=== PATIENT | male | born 1960 | race Caucasian/White ===

== ENCOUNTER 2022-06-22 11:47 | Observation (INO) | payer BC ==
[~2022-06-22] VITALS: Ht 165.1 cm; Wt 105.4 kg
[2022-06-22 11:52] VITALS: BP 146/96
[2022-06-22] MEDS ORDERED: TORADOL IV STA (12:14)
--- NOTE | 2022-06-22 12:24 | ER.PDOC ---
General Chief Complaint: Flank Pain Stated Complaint: POSSIBLE KIDNEY STONE Time seen by MD: 12:20 Source: patient Exam Limitations: no limitations History of Present Illness Initial Comments Patient was seen in the emergency room in [place] last week and diagnosed with right ureteral calculus. Patient was referred to Dr. Adam. He came to the hospital and had pre-op labs today for stent placement tomorrow. He started experiencing so much pain and was told to come to the emergency room. No fever or chills. Timing/Duration: 1 week Severity/Quality: severe, sharpness Radiation: RLQ Associated Symptoms: denies symptoms Exacerbated by: nothing Relieved By: nothing Allergies: Coded Allergies: No Known Allergies (Unverified , 06/22/22) Vital Signs First Vital Signs Date Time Temp Pulse Resp B/P (MAP) Pulse Ox O2 Delivery O2 Flow Rate FiO2 06/22/22 11:52 97.9 50 18 97 06/22/22 11:52 146/96 (113) Room Air* 0 21 Last Vital Signs Date Time Temp Pulse Resp B/P (MAP) Pulse Ox O2 Delivery O2 Flow Rate FiO2 06/22/22 11:52 97.9 50 18 146/96 (113) 97 Room Air* 0 21 Past Medical History Medical History: hypertension Surgical History: no surgical history Family History Significant Family History: no pertinent family hx Social History Smoking: non-smoker Alcohol Use: occassionally Drug Use: none Constitutional: no symptoms reported Respiratory: no symptoms reported Cardiovascular: no symptoms reported Gastrointestinal: see HPI Genitourinary: see HPI All Other Systems: Reviewed and Negative Physical Exam General Appearance: No Apparent Distress, WD/WN Neck: Non-Tender, Full Range of Motion, Supple, Normal Inspection Respiratory: chest non-tender, lungs clear, normal breath sounds, no respiratory distress, no accessory muscle use Cardiovascular: Normal Peripheral Pulses, Regular Rate, Rhythm, No Edema, No Gallop, No JVD, No Murmur Gastrointestinal: Normal Bowel Sounds, No Organomegaly, No Pulsatile Mass, Guarding, Tenderness (RLQ) Back: Normal Inspection, No CVA Tenderness, No Vertebral Tenderness Extremities: Normal Range of Motion, Non-Tender, Normal Inspection, No Pedal Edema, No Calf Tenderness, Normal Capillary Refill, Pelvis Stable 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, No Motor/Sensory Deficits, Alert, Normal Mood/Affect, Oriented x 3 Skin: Normal Color, Warm/Dry Lymphatic: No Adenopathy Results/Orders Results/Orders Orders - SELINA GONZALEZ MD Urinalysis (06/22/22 12:14) Ct Abd/Pelvis Wo Iv Contrast (06/22/22 12:14) Ketorolac Tromethamine (Toradol) (06/22/22 12:14) Ketorolac Tromethamine (Toradol) (06/22/22 12:31) Vital Signs Date Time Temp Pulse Resp B/P (MAP) Pulse Ox O2 Delivery O2 Flow Rate FiO2 06/22/22 11:52 97.9 50 18 146/96 (113) 97 Room Air* 0 21 06/22/22 11:52 97.9 50 18 06/22/22 11:52 97.9 50 18 97 Administered Medications Medications (Trade) Dose Ordered Sig/Melissa Route PRN Reason Start Time Stop Time Status Last Admin Dose Admin Ketorolac Tromethamine (Toradol) 30 mg STAT STAT IV 06/22/22 12:14 06/22/22 12:17 DC 06/22/22 12:46 30 MG Laboratory Tests Test 06/22/22 12:26 Urine Collection Type RANDOM Urine Color YELLOW Urine Appearance Urine Bilirubin NEGATIVE (NEGATIVE) Urine Ketones NEGATIVE (NEGATIVE) Urine Specific [place] >=1.030 (1.005-1.030) Urine pH 5.0 (4.5-8.0) Urine Protein TRACE (NEGATIVE) Urine Urobilinogen 0.2 E.U./dL (0.2) Urine Nitrate NEGATIVE (NEGATIVE) Urine Leukocyte Esterase NEGATIVE (NEGATIVE) Urine Glucose (Auto)(UA) NEGATIVE (NEGATIVE) Urine Blood 2+ (NEGATIVE) H Urine RBC 5-10 RBC/HPF (NONE SEEN) H Urine WBC 2-5 WBC/HPF (0-2) Urine Squamous Epithelial Cells MODERATE (<=FEW) Urine Bacteria FEW (NONE SEEN) H Urine Yeast RARE (NONE SEEN) Progress Progress CT abdomen/pelvis: 5 mm stone right ureterovesical junction causing right-sided hydroureter and hydronephrosis. 2. Multiple nonobstructing stones in both renal collecting systems. 3. Hepatic steatosis. 4. Atherosclerosis. Sodium 131, glucose 137, creatinine is normal. WBC 8.5. Urinalysis: WBCs 2-5 and few bacteria. He received Toradol with improvement in pain. I consulted with Dr. Adam who told me to admit patient under the hospitalist. ER DEPART Departure Time of Disposition: 13:06 Disposition: 09 ADMITTED INPATIENT Impression: Primary Impression: Ureteral stone with hydronephrosis Condition: Improved Referrals: NORMAN ADAM MD (PCP) PRIMARY CARE PROVIDER Comments Admitted to Dr. Govea Duration or Time Spent with Pa: 30 min SELINA GONZALEZ MD June 22, 2022 12:24
[2022-06-22] MEDS ORDERED: TORADOL ONE (12:31)
[2022-06-22 12:34] LABS: BILIRUBIN,URINE NEGATIVE (NEGATIVE); UROBILINOGEN,URINE 0.2 E.U./dL (0.2)
--- NOTE | 2022-06-22 12:52 | DIREP ---
PROCEDURE:CT ABD/PELVIS W/O TECHNIQUE: COMPARISON:None. INDICATIONS:Right flank pain FINDINGS: LOWER CHEST:Dependent atelectatic changes both lung bases posteriorly. Coronary artery calcifications. LIVER:Diffuse fatty changes. Calcified granuloma in the liver peer BILIARY:Normal. PANCREAS:Normal. SPLEEN:Normal. URINARY TRACT:5 mm stone at the right ureterovesical junction series 2, image 129 and series 50972, image 114 causing right-sided hydroureter and hydronephrosis. There are least 4 more small nonobstructive stones in the right renal collecting system with the largest stone measuring 5 mm series 2, image 65. There are at least 4 nonobstructing stones in the left renal collecting system with the largest stone measuring 9 mm series 2, image 71. There 2 cysts in the right kidney with the larger cyst anteriorly and laterally in the lower right kidney measuring 4.1 cm diameter series 2, image 75. ADRENALS:Normal. AORTA/VASCULAR:Mild arterial calcifications. RETROPERITONEUM:Normal. BOWEL/MESENTERY:Normal. Normal appendix. ABDOMINAL WALL:Normal. PELVIS:Normal. BONES:Normal. OTHER:Normal. CONCLUSION: 1. 5 mm stone right ureterovesical junction causing right-sided hydroureter and hydronephrosis. 2. Multiple nonobstructing stones in both renal collecting systems. 3. Hepatic steatosis. 4. Atherosclerosis. Dictated by: Chivo Puentes M.D. on 06/22/2022 at 12:40 PM
[2022-06-22 13:01] LABS: YEAST,URINE RARE (NONE SEEN)
[2022-06-22] MEDS ORDERED: HNS 1000ML/KCL 20MEQ 1,000 ML IV STA (13:07)
[2022-06-22] MEDS ORDERED: ROCEPHIN 1,000 MG in NS 100ML 100 ML IV STA (13:07)
[2022-06-22] MEDS ORDERED: HNS 1000ML/KCL 20MEQ 1,000 ML ONE ×2 (13:15→13:19)
[2022-06-22] MEDS ORDERED: ROCEPHIN ONE (13:15)
[2022-06-22] MEDS ORDERED: NS 100ML 100 ML IV ONE (13:15)
[2022-06-22] MEDS ORDERED: TORADOL IV PRN (14:00)
[2022-06-22] MEDS ORDERED: ROCEPHIN 1,000 MG in NS 100ML 100 ML IV SCH (14:00)
--- NOTE | 2022-06-22 14:03 | PCM.HP ---
History of Present Illness Reason for Visit: Right flank pain History of Present Illness 61-year-old male with past medical history of hypertension, hyperlipidemia, obesity who presented to the emergency room with right flank pain. Patient has been having right flank pain and was seen by urologist as an outpatient and was scheduled for procedure. Pain got worse. Patient went to the emergency room. Patient has a obstructing right ureter stone. No fever no chills. Urologist consulted. Patient is being admitted hospital for further management. Family history: Reviewed and noncontributory Past Medical History Cardiac: HTN, Hyperlipidemia Past Surgical History: Other (Hernia repair) Past Social History Smoke: No Alcohol: none Review of Systems Gastrointestinal: Nausea Genitourinary: Other (Right flank pain) Other Review of other 14 systems negative except what is mentioned above. Allergies: Coded Allergies: No Known Allergies (Unverified , 06/22/22) VTE VTE Risk Total Score: 4 VTE Risk Score VTE Risk: Score 0-1 = Low Risk (Aggressive mobilization; early ambulation; no VTE prophylaxis required) Score 2: Moderate Risk (Intermittent/Pneumatic Compression Device OR Lovenox/Heparin/Coumadin) Score 3-4: High Risk (Intermittent/Pneumatic Compression Device AND Lovenox/Heparin/Coumadin) Score > or =5: Highest Risk (Intermittent/Pneumatic Compression Device AND Lovenox/Heparin/Coumadin) VTE VTE Present on Admission: No Currently receiving anticoagul: No VTE Risk Total Score: 4 Exam Vital Signs Vital Signs Date Time Temp Pulse Resp B/P (MAP) Pulse Ox O2 Delivery O2 Flow Rate FiO2 06/22/22 11:52 97.9 50 18 146/96 (113) 97 Room Air* 0 21 General Appearance: Alert, Oriented X3, moderate distress HEENT: Atraumatic, PERRLA Respiratory: Clear to auscultation, Normal air movement Cardiovascular: Regular rate, Normal S1, Normal S2 Abdominal: Normal bowel sounds, Soft, No tenderness Extremities: No clubbing, No cyanosis Skin: No lesions Neuro: Normal speech, Normal tone Psych/Mental Status: Mental status NL, Mood NL Assessment/Plan Assessment/Plan Assessment/Plan 61-year-old male with past medical history of hypertension, hyperlipidemia, obesity who presented to the emergency room with right flank pain. Patient has been having right flank pain and was seen by urologist as an outpatient and was scheduled for procedure. Pain got worse. Patient went to the emergency room. Patient has a obstructing right ureter stone. No fever no chills. Urologist consulted. Patient is being admitted hospital for further management. Plan Admit IV fluids Pain management with close monitoring of vital signs and pulse ox Monitor kidney function and urine output Urologist consulted for further management Keep n.p.o. after midnight Reconcile home meds DVT prophylaxis SCDs while in bed.. Expect length of stay less than 2 midnights Case discussed with patient and daughter Problems: (1) Ureteral stone with hydronephrosis Status: Acute ICD Code: N13.2 - Hydronephrosis with renal and ureteral calculous obstruction SNOMED: 69659366, 5804889, 50063664 (2) Obesity ICD Code: E66.9 - Obesity, unspecified SNOMED: 097747290, 115388367 (3) Hyperlipidemia ICD Code: E78.5 - Hyperlipidemia, unspecified SNOMED: 67167727 (4) Hypertension ICD Code: I10 - Essential (primary) hypertension SNOMED: 10857021 Patient History: No known health problems G8 MOTHER G8 BROTHER G8 SISTER 19 CHILD KARLENE CASTILLO MD June 22, 2022 14:03
[2022-06-22] MEDS ORDERED: APRESOLINE IV PRN (14:30)
[2022-06-22] MEDS ORDERED: MORPHINE SULFATE IV PRN (14:30)
[2022-06-22] MEDS ORDERED: ZOFRAN IV PRN (14:30)
[2022-06-22 15:23] VITALS: BP 101/61
[2022-06-22 17:16] VITALS: BP 116/73
[2022-06-22 20:22] VITALS: BP 117/71
[2022-06-22] MEDS: LACTATED RINGERS 1,000 ML IV SCH (22:57)
[2022-06-23] VITALS (13 sets, daily range): BP systolic 97–139; BP diastolic 66–86
[2022-06-23] MEDS: LACTATED RINGERS 1,000 ML IV SCH (03:00)
--- NOTE | 2022-06-23 10:12 | PRM.PN ---
Subjective Subjective Date: June 23, 2022 Time: 09:00 Subjective Still having upper abdominal/flank pain but better. Scheduled for cystoscopy today. Case discussed with patient, daughter, RN. Patient History: No known health problems G8 MOTHER G8 BROTHER G8 SISTER 19 CHILD Review of Systems Gastrointestinal: Nausea, Abdominal Pain Genitourinary: Other (Right flank pain) Allergies: Coded Allergies: No Known Allergies (Unverified , 06/22/22) Objective Vitals and I/O Vital Sign - Last 24 Hours 06/22/22 06/22/22 06/22/22 06/22/22 11:52 11:52 11:52 15:23 Temp 97.9 97.9 97.9 97.7 Pulse 50 50 50 64 Resp 18 18 18 18 B/P (MAP) 146/96 (113) 101/61 (74) Pulse Ox 97 97 96 O2 Delivery Room Air* Room Air* O2 Flow Rate 0 0 FiO2 21 06/22/22 06/22/22 06/22/22 06/22/22 17:16 17:42 19:03 19:03 Temp 97.7 Pulse 64 Resp 18 B/P (MAP) 116/73 (87) Pulse Ox 96 O2 Delivery Room Air* Room Air Room Air Room Air O2 Flow Rate 0 0.00 0.00 0.00 FiO2 21 06/22/22 06/23/22 06/23/22 06/23/22 20:22 00:28 03:53 08:00 Temp 97.6 97.5 97.6 Pulse 66 61 65 Resp 18 17 17 B/P (MAP) 117/71 (86) 110/72 (85) 115/70 (85) Pulse Ox 96 97 97 O2 Delivery Room Air* Room Air* Room Air* Room Air O2 Flow Rate 0 0 0 0.00 FiO2 21 21 21 06/23/22 08:06 Temp 97.9 Pulse 66 Resp 18 B/P (MAP) 125/76 (92) Pulse Ox 94 O2 Delivery Room Air* O2 Flow Rate 0 FiO2 21 Intake and Output 06/23/22 07:00 Intake Total 480 ml Balance 480 ml General: Alert, Oriented X3, moderate distress HEENT: Atraumatic, PERRLA Lungs: Clear to auscultation, Normal air movement Heart: Regular rate, Normal S1, Normal S2 Abdomen: Normal bowel sounds, Soft, No tenderness, Other (Flank tenderness) Extremities: No clubbing, No cyanosis Neuro: Normal speech, Normal tone Psych/Mental Status: Mental status NL, Mood NL All Results(Lab/Rad) Laboratory Tests Test 06/22/22 12:26 Urine Collection Type RANDOM Urine Color YELLOW Urine Appearance Urine Bilirubin NEGATIVE Urine Ketones NEGATIVE Urine Specific [place] >=1.030 Urine pH 5.0 Urine Protein TRACE Urine Urobilinogen 0.2 E.U./dL Urine Nitrate NEGATIVE Urine Leukocyte Esterase NEGATIVE Urine Glucose (Auto)(UA) NEGATIVE Urine Blood 2+ Urine RBC 5-10 RBC/HPF Urine WBC 2-5 WBC/HPF Urine Squamous Epithelial Cells MODERATE Urine Bacteria FEW Urine Yeast RARE Current Medications Medications (Trade) Dose Ordered Sig/Melissa Route PRN Reason Start Time Stop Time Status Last Admin Dose Admin Ketorolac Tromethamine (Toradol) 30 mg STAT STAT IV 06/22/22 12:14 06/22/22 12:17 DC 06/22/22 12:46 Ketorolac Tromethamine (Toradol) 30 mg STK-MED ONCE .ROUTE 06/22/22 12:31 06/22/22 12:31 DC Potassium Chloride/Sodium Chloride 1,000 ml @ 100 mls/hr Q10H STAT IV 06/22/22 13:07 06/22/22 14:12 DC 06/22/22 13:21 Ceftriaxone Sodium 1000 mg/ Sodium Chloride 100 ml @ 100 mls/hr STAT STAT IV 06/22/22 13:07 06/22/22 14:06 DC 06/22/22 13:21 Potassium Chloride/Sodium Chloride 1,000 ml @ ud STK-MED ONCE .ROUTE 06/22/22 13:15 06/22/22 13:15 DC Ceftriaxone Sodium (Rocephin) 1,000 mg STK-MED ONCE .ROUTE 06/22/22 13:15 06/22/22 13:15 DC Sodium Chloride 100 ml @ ud STK-MED ONCE IV 06/22/22 13:15 06/22/22 13:15 DC Potassium Chloride/Sodium Chloride 1,000 ml @ ud STK-MED ONCE .ROUTE 06/22/22 13:19 06/22/22 13:20 DC Morphine Sulfate (Morphine Sulfate) 4 mg Q4H PRN IV PAIN 7 - 10 06/22/22 14:30 07/22/22 14:29 Ketorolac Tromethamine (Toradol) 15 mg Q6H PRN IV PAIN 4 - 6 06/22/22 14:00 06/27/22 13:59 Ceftriaxone Sodium 1000 mg/ Sodium Chloride 100 ml @ 200 mls/hr Q24HRS IV 06/22/22 14:00 06/22/22 14:50 DC Hydralazine HCl (Apresoline) 10 mg Q4HR PRN IV HYPERTENSION 06/22/22 14:30 07/22/22 14:29 Ondansetron HCl (Zofran) 4 mg Q4H PRN IV NAUSEA / VOMITING 06/22/22 14:30 07/22/22 14:29 Ceftriaxone Sodium 1000 mg/ Sodium Chloride 100 ml @ 200 mls/hr Q24HRS IV 06/23/22 15:00 07/23/22 14:59 Assessment/Plan Assessment/Plan Assessment/Plan 61-year-old male with past medical history of hypertension, hyperlipidemia, obesity who presented to the emergency room with right flank pain. Patient has been having right flank pain and was seen by urologist as an outpatient and was scheduled for procedure. Pain got worse. Patient went to the emergency room. Patient has a obstructing right ureter stone. No fever no chills. Urologist consulted. Patient is being admitted hospital for further management. Plan Admit IV fluids Pain management with close monitoring of vital signs and pulse ox Monitor kidney function and urine output Urologist consulted for further management Keep n.p.o. after midnight Reconcile home meds DVT prophylaxis SCDs while in bed.. Expect length of stay less than 2 midnights Case discussed with patient and daughter 06/23/2022 Continue current management Pain management IV fluids Further management as per urologist DVT prophylax SCDs Problems: (1) Ureteral stone with hydronephrosis Status: Acute ICD Code: N13.2 - Hydronephrosis with renal and ureteral calculous obstruction SNOMED: 90799646, 5735161, 35578964 (2) Hypertension ICD Code: I10 - Essential (primary) hypertension SNOMED: 43118332 (3) Hyperlipidemia ICD Code: E78.5 - Hyperlipidemia, unspecified SNOMED: 38899721 (4) Obesity ICD Code: E66.9 - Obesity, unspecified SNOMED: 015729926, 907471710 KARLENE CASTILLO MD June 23, 2022 10:11
--- NOTE | 2022-06-23 11:00 | NUR ---
DISCHARGE PLANNING CM VISITED WITH PATIENT AND DAUGHTER REGARDING D/C PLAN AND NEEDS. PATIENT STATES HE LIVES AT HOME ALONE, IS NORMALLY INDEPENDENT OF ADL'S, AND HAS DR ROCHA FOR PCP. CM EDUCATED PATIENT AND DAUGHTER ON DISCHARGE PLANNING. PATIENT DENIED NEEDS AT THIS TIME. GOAL IS FOR PATIENT TO RETURN HOME TO SELF CARE ROUTINE. CM WILL FOLLOW FOR D/C PLAN.
--- NOTE | 2022-06-23 11:30 | NUR ---
PT TO OR AT THIS TIME
[2022-06-23] MEDS ORDERED: LEVAQUIN 100 ML IV ONE (12:00)
[2022-06-23] MEDS ORDERED: NORCO 7.5MG PO PRN (13:00)
[2022-06-23] MEDS ORDERED: LACTATED RINGERS 1,000 ML IV SCH (13:00)
--- NOTE | 2022-06-23 13:54 | PRM.DC ---
Discharge Summary Reason for Visit: Right flank pain Hospital Course 61-year-old male History of hypertension, hyperlipidemiapresented emergency room with worsening right flank pain. Urologist consulted. Patient underwent cystoscopy with the following as per urologist: PREOPERATIVE DIAGNOSIS: Calculus, right distal ureter. FINAL DIAGNOSIS: Calculus, right distal ureter. PROCEDURE: Cystoscopy, right retrograde with insertion of a double-J right Postprocedure patient was cleared for discharge by urologist..Patient is doing well.. Antibiotic and follow-up as per urologist. Medication reconciliation completed. Patient will be discharged home. Patient History: No known health problems G8 MOTHER G8 BROTHER G8 SISTER 19 CHILD Exam/Vitals Current Medications Medications (Trade) Dose Ordered Sig/Melissa Route PRN Reason Start Time Stop Time Status Last Admin Dose Admin Ketorolac Tromethamine (Toradol) 30 mg STAT STAT IV 06/22/22 12:14 06/22/22 12:17 DC 06/22/22 12:46 Ketorolac Tromethamine (Toradol) 30 mg STK-MED ONCE .ROUTE 06/22/22 12:31 06/22/22 12:31 DC Potassium Chloride/Sodium Chloride 1,000 ml @ 100 mls/hr Q10H STAT IV 06/22/22 13:07 06/22/22 14:12 DC 06/22/22 13:21 Ceftriaxone Sodium 1000 mg/ Sodium Chloride 100 ml @ 100 mls/hr STAT STAT IV 06/22/22 13:07 06/22/22 14:06 DC 06/22/22 13:21 Potassium Chloride/Sodium Chloride 1,000 ml @ ud STK-MED ONCE .ROUTE 06/22/22 13:15 06/22/22 13:15 DC Ceftriaxone Sodium (Rocephin) 1,000 mg STK-MED ONCE .ROUTE 06/22/22 13:15 06/22/22 13:15 DC Sodium Chloride 100 ml @ ud STK-MED ONCE IV 06/22/22 13:15 06/22/22 13:15 DC Potassium Chloride/Sodium Chloride 1,000 ml @ ud STK-MED ONCE .ROUTE 06/22/22 13:19 06/22/22 13:20 DC Morphine Sulfate (Morphine Sulfate) 4 mg Q4H PRN IV PAIN 7 - 10 06/22/22 14:30 06/23/22 12:50 DC Ketorolac Tromethamine (Toradol) 15 mg Q6H PRN IV PAIN 4 - 6 06/22/22 14:00 06/23/22 12:50 DC Ceftriaxone Sodium 1000 mg/ Sodium Chloride 100 ml @ 200 mls/hr Q24HRS IV 06/22/22 14:00 06/22/22 14:50 DC Hydralazine HCl (Apresoline) 10 mg Q4HR PRN IV HYPERTENSION 06/22/22 14:30 06/23/22 16:24 DC Ondansetron HCl (Zofran) 4 mg Q4H PRN IV NAUSEA / VOMITING 06/22/22 14:30 06/23/22 16:24 DC Ceftriaxone Sodium 1000 mg/ Sodium Chloride 100 ml @ 200 mls/hr Q24HRS IV 06/23/22 15:00 06/23/22 12:50 DC Levofloxacin/ Dextrose 100 ml @ 100 mls/hr OT ONCE IV 06/23/22 12:00 06/23/22 12:50 DC 06/23/22 12:08 Acetaminophen/ Hydrocodone Bitart ([place] 7.5mg) 1 each Q4H PRN PO PAIN 4 - 6 06/23/22 13:00 06/23/22 16:24 DC General: Alert, Oriented X3 HEENT: PERRLA Neck: Supple, No JVD Lungs: Clear to auscultation, Normal air movement Heart: Regular rate, Normal S1, Normal S2 Abdomen: Normal bowel sounds, Soft, No tenderness Extremities: No cyanosis, Normal pulses Skin: No significant lesion Neuro: Normal speech, Normal tone Psych/Mental Status: Mental status NL, Mood NL Scheduled Ciprofloxacin Hcl (Cipro), 1 TAB PO BID Tramadol Hcl (Tramadol Hcl), 1 TAB PO Q6HR, (Reported) Sepsis Evaluation @ Discharge 06/23/22 19:03 Course Sepsis Screening Results: Posi: NEGATIVE Sepsis Qualifier/Stage: NO DEFINITE RISK Duration or Total Time Spent w: 30 min Vitals & review Data Vital Sign - Last 24 Hours 06/22/22 06/22/22 06/22/22 06/22/22 15:23 17:16 17:42 19:03 Temp 97.7 97.7 Pulse 64 64 Resp 18 18 B/P (MAP) 101/61 (74) 116/73 (87) Pulse Ox 96 96 O2 Delivery Room Air* Room Air* Room Air Room Air O2 Flow Rate 0 0 0.00 0.00 FiO2 21 21 06/22/22 06/22/22 06/23/22 06/23/22 19:03 20:22 00:28 03:53 Temp 97.6 97.5 97.6 Pulse 66 61 65 Resp 18 17 17 B/P (MAP) 117/71 (86) 110/72 (85) 115/70 (85) Pulse Ox 96 97 97 O2 Delivery Room Air Room Air* Room Air* Room Air* O2 Flow Rate 0.00 0 0 0 FiO2 21 21 21 06/23/22 06/23/22 06/23/22 06/23/22 08:00 08:06 12:24 12:42 Temp 97.9 98.5 97.5 Pulse 66 89 Resp 18 16 B/P (MAP) 125/76 (92) 105/71 (82) Pulse Ox 94 96 O2 Delivery Room Air Room Air* Nasal [place] O2 Flow Rate 0.00 0 2.00 FiO2 21 06/23/22 06/23/22 06/23/22 06/23/22 12:42 12:45 12:47 12:50 Pulse 82 80 75 Resp 16 16 16 B/P (MAP) 97/66 (76) 108/76 (87) 116/78 (91) Pulse Ox 96 99 99 O2 Delivery Nasal [place] Nasal [place] Nasal [place] O2 Flow Rate 2.00 2.00 2.00 2.00 06/23/22 06/23/22 12:55 13:00 Pulse 80 71 Resp 16 16 B/P (MAP) 139/72 (94) 131/75 (93) Pulse Ox 100 99 O2 Delivery Nasal [place] Nasal [place] O2 Flow Rate 2.00 2.00 Intake and Output 06/23/22 07:00 Intake Total 480 ml Balance 480 ml Laboratory Tests Test 06/22/22 12:26 Urine Collection Type RANDOM Urine Color YELLOW Urine Appearance Urine Bilirubin NEGATIVE Urine Ketones NEGATIVE Urine Specific [place] >=1.030 Urine pH 5.0 Urine Protein TRACE Urine Urobilinogen 0.2 E.U./dL Urine Nitrate NEGATIVE Urine Leukocyte Esterase NEGATIVE Urine Glucose (Auto)(UA) NEGATIVE Urine Blood 2+ Urine RBC 5-10 RBC/HPF Urine WBC 2-5 WBC/HPF Urine Squamous Epithelial Cells MODERATE Urine Bacteria FEW Urine Yeast RARE Current Medications Medications (Trade) Dose Ordered Sig/Melissa PRN Reason Start Time Stop Time Status Last Admin Acetaminophen/ Hydrocodone Bitart ([place] 7.5mg) 1 each Q4H PRN PAIN 4 - 6 06/23/22 13:00 07/23/22 12:59 Hydralazine HCl (Apresoline) 10 mg Q4HR PRN HYPERTENSION 06/22/22 14:30 07/22/22 14:29 Ondansetron HCl (Zofran) 4 mg Q4H PRN NAUSEA / VOMITING 06/22/22 14:30 07/22/22 14:29 LEVEL 1 SEPSIS INFECTION CRITE: ABX Therapy LEVEL 2-SIRS (LIST ALL THAT AP: None/Not assessed Cardiovascular Evidence: Not Assessed or None Hematologic Evidence: None/Not assessed Hepatic Evidence: None/Not assessed Metabolic Evidence: None/Not assessed Neurological Evidence: None/Not assessed Respiratory Evidence: None/Not assessed Renal Evidence: None/Not assessed O2 Sat by Pulse Oximetry: 99 Oxygen Flow Rate: 2.00 Plan Problems: (1) Calculus of ureter ICD Code: N20.1 - Calculus of ureter SNOMED: 40041458 (2) Obesity ICD Code: E66.9 - Obesity, unspecified SNOMED: 705203953, 378786949 (3) Hypertension ICD Code: I10 - Essential (primary) hypertension SNOMED: 67344985 (4) Hyperlipidemia ICD Code: E78.5 - Hyperlipidemia, unspecified SNOMED: 51411722 Plan 61-year-old male History of hypertension, hyperlipidemiapresented emergency room with worsening right flank pain. Urologist consulted. Patient underwent cystoscopy with the following as per urologist: PREOPERATIVE DIAGNOSIS: Calculus, right distal ureter. FINAL DIAGNOSIS: Calculus, right distal ureter. PROCEDURE: Cystoscopy, right retrograde with insertion of a double-J right Postprocedure patient was cleared for discharge by urologist..Patient is doing well.. Antibiotic and follow-up as per urologist. Medication reconciliation completed. Patient will be discharged home. KARLENE CASTILLO MD June 23, 2022 13:54
[2022-06-23] MEDS ORDERED: TRAM50TA PO (14:42)
[2022-06-23] MEDS ORDERED: CIPR500T86 PO (14:42)
[2022-06-23] MEDS ORDERED: ROCEPHIN 1,000 MG in NS 100ML 100 ML IV SCH (15:00)
--- NOTE | 2022-06-23 15:40 | NUR ---
DISCHARGE NOTE IV DC'D, TIP INTACT. VERBAL AND WRITTEN DISCHARGE INSTRUCTIONS GIVEN, VERBALIZED UNDERSTANDING. SECURITY RELEASED WALLET TO PT, MONEY COUNT CORRECT AT DISCHARGE. PT INSTRUCTED TO BE NPO AT MIDNIGHT TUESDAY AND RETURN TO HOSPITAL TUESDAY AM FOR SCHEDULED LITHOTRIPSY PROCEDURE. TO PV VIA WC IN STABLE CONDITION.
--- NOTE | 2022-06-23 16:42 | OPH ---
DATE OF SURGERY: 06/23/2022 DICTATOR NAME: Sy Rosales MD PREOPERATIVE DIAGNOSIS: Calculus, right distal ureter. FINAL DIAGNOSIS: Calculus, right distal ureter. PROCEDURE: Cystoscopy, right retrograde with insertion of a double-J right ureteral stent. DESCRIPTION OF PROCEDURE: The patient was brought to the cystoscopy room, was put in supine position on the cystoscopy table. After the patient was given a satisfactory and adequate general anesthesia, the patient was placed in the lithotomy position. Genitalia was then prepped and draped aseptically in the usual manner. First, a 23-Congolese cystoscope was inserted per urethra up to the bladder. With use of the right wide-angle lens, the bladder was visualized. There is some congestion noted. No tumor, no calculi, no ulcerations seen. There is also some hypertrophy noted in the trigone. A right retrograde was initially performed by inserting a 7-Congolese ureteral catheter to the right ureteral orifice and injected with Omnipaque dye and it showed a calculus in the right distal ureter. After that, the Glidewire was removed and a double-J 6-Congolese ureteral stent was then inserted through the Glidewire from the right ureteral orifice all the way to the right kidney. After confirmation of the right position of the stent, the Glidewire was removed and then the bladder was emptied of fluid. After that, the cystoscope was also removed and the procedure was terminated. The patient was then awakened, was transferred to the recovery room in stable condition. Sy Rosales MD DR: FRANCO/JOANNA/KELLY TID: [id number] RECEIPT: [id number]
--- NOTE | 2022-06-23 20:12 | DIREP ---
PROCEDURE:XRAY UROGRAPHY RETROGRADE COMPARISON:None. INDICATIONS:STENT PLACEMENT, 10CC OMNI 180, 76.43 MGY, 123.4 SEC FLUORO TIME TECHNIQUE:Intraoperative fluoroscopy FINDINGS: Intraoperative fluoroscopy for retrograde urography. Right ureteral stent placement. The left collecting system was not opacified on the provided images. Images: 8. No unexpected surgical instrument on the provided views. CONCLUSION: 1. Intraoperative fluoroscopy for retrograde urography. 2. Right ureteral stent. Dictated by: Brittney Villarreal MD on 06/23/2022 at 08:09 PM
--- NOTE | 2022-06-24 01:50 | CNH ---
DATE OF CONSULTATION: 06/22/2022 DICTATOR NAME: Sy Rosales MD HISTORY OF PRESENT ILLNESS: This is a 61-year-old male, who was referred for urological evaluation due to right flank pain. The patient was admitted from the Emergency Room yesterday, and CAT scan revealed a calculus in the right distal ureter with hydronephrosis. The patient has a right CVA tenderness. Chart was reviewed including the x-ray, and I discussed with the patient I am scheduling him for cystoscopy with right retrograde, possible stent insertion tomorrow. Sy Rosales MD DR: FRANCO/GINA TID: [id number] RECEIPT: [id number]
[2022-06-25] MEDS ORDERED: TAMS-14 PO (08:52)
== END 2022-06-23 15:40 | disposition home or self-care (01) ==
LOC: ER 11:47 → MS 13:07
PROVIDERS: ADMIT Internal Medicine; ATTEND Internal Medicine
DX: N13.2 Hydronephrosis with renal and ureteral calculous obstruction (principal); I10 Essential (primary) hypertension; E78.5 Hyperlipidemia, unspecified; E66.9 Obesity, unspecified; Z79.899 Other long term (current) drug therapy
CPT/HCPCS: 96365; 96366; 96375; 99285; 87086; 74176; 81001; 52005; 74420; G0378 ×26; J7030 ×2; J7120; J0696 ×3; J1885; Q9965; 76000; 85610; 85730; C1758; C1769; C2617

== ENCOUNTER 2022-06-25 06:15 | Day surgery (SDC) | payer BC ==
[2022-06-22 11:18] VITALS: BP 153/83
--- NOTE | 2022-06-22 11:36 | PCM.EKG ---
[facility] Test Date: 2022-06-22 Pat Name: CONCHIS CALVO [place] [facility] [place] Gender: Male Swimming Coach Or Instructor: MATTY SMITH : 1960 Requested By: NORMAN ADAM Order Number: [id number] Reading MD: Measurements Intervals [place] Rate: 56 P: 45 FL: 168 QRS: 13 QRSD: 82 T: 34 QT: 402 QTc: 387 Interpretive Statements Sinus bradycardia Please click the below link to view image of tracing.
[2022-06-22 11:58] LABS: BASOPHIL # 0.1 10^3/uL (0.0-0.1); BASOPHIL % 0.8 % (0.0-0.2); EOSINOPHIL # 0.2 10^3/uL (0.0-0.2); EOSINOPHIL % 2.4 % (0.0-5.0); LYMPHOCYTES # 2.26 10^3/uL1 (1.0-4.8); LYMPHOCYTES % 26.7 % (24.0-44.0); MONOCYTES # 0.6 10^3/uL (0.3-0.8); MONOCYTES % 7.2 % (5.0-12.0); NEUTROPHIL # 5.3 10^3/uL (1.8-7.7); NEUTROPHILS % 62.7 % (41.0-85.0); PLATELET COUNT 293 10^3/uL (150-400); RED CELL DISTRIBUTION WIDTH 14.9 % (11.5-14.5)
[2022-06-22 12:04] LABS: CARBON DIOXIDE 22.4 mmol/L (20.0-32)
[~2022-06-25] VITALS: Ht 154.9 cm; Wt 104.8 kg
[2022-06-25] VITALS (12 sets, daily range): BP systolic 122–144; BP diastolic 69–90
[~2022-06-25 06:15] MED LIST: CIPR500T86 PO; DECADRON ONE; DIPRIVAN IV ONE; LACTATED RINGERS 1,000 ML ONE; LEVAQUIN 100 ML IV ONE; NS 1000ML 1,000 ML ONE; SUBLIMAZE ONE; TORADOL ONE; TRAM50TA PO; XYLOCAINE 2% 5ML VIAL ONE; ZOFRAN ONE
[2022-06-25] MEDS ORDERED: OLME40TA16 PO (06:33)
[2022-06-25] MEDS ORDERED: PANT40TA6 PO (06:33)
[2022-06-25] MEDS ORDERED: ROSU10TA2 PO (06:33)
[2022-06-25] MEDS: NS 1000ML 1,000 ML IV SCH (07:00)
[2022-06-25] MEDS ORDERED: LASIX ONE (07:33)
[2022-06-25] MEDS ORDERED: LEVAQUIN 100 ML IV ONE ×2 (07:33→08:00)
[2022-06-25] MEDS ORDERED: XYLOCAINE 2% 5ML VIAL ONE (07:55)
[2022-06-25] MEDS ORDERED: DECADRON ONE (07:55)
[2022-06-25] MEDS ORDERED: ZOFRAN ONE (07:55)
[2022-06-25] MEDS ORDERED: SUBLIMAZE ONE (07:56)
[2022-06-25] MEDS ORDERED: DIPRIVAN IV ONE (07:56)
[2022-06-25] MEDS ORDERED: TAMS-14 PO (08:52)
[2022-06-25] MEDS ORDERED: NORCO 7.5MG PO PRN (09:00)
[2022-06-25] MEDS ORDERED: LACTATED RINGERS 1,000 ML IV SCH (09:00)
[2022-06-25] MEDS: LASIX IV ONE (09:06)
--- NOTE | 2022-06-25 09:24 | OPH ---
DATE OF SURGERY: 06/25/2022 DICTATOR NAME: Sy Rosales MD PREOPERATIVE DIAGNOSIS: Calculus, right distal ureter with an indwelling stent. FINAL DIAGNOSIS: Calculus, right distal ureter with an indwelling stent. PROCEDURE: Right ESWL. DESCRIPTION OF PROCEDURE: The patient was brought to the lithotripsy room, was put in supine position on the lithotripsy table. A preoperative KUB was initially performed, which revealed a calculus in the right distal ureter with an indwelling stent. After the patient was given a satisfactory and adequate LMA general anesthesia and after localization of the stone with the use of fluoroscopy and ultrasound, a right ESWL was then performed using a Dornier Compact Delta II lithotripter. A total of 2000 shockwaves were delivered to the stones in the right distal ureter under ultrasound guidance. After fragmentation of the stone as noted under fluoroscopy and ultrasound, procedure was terminated. The patient was awakened, was transferred to the recovery room in stable condition. Sy Rosales MD DR: SKY TID: [id number] RECEIPT: [id number]
--- NOTE | 2022-06-25 14:07 | DIREP ---
PROCEDURE:XRAY ABDOMEN SINGLE VW COMPARISON:None. INDICATIONS:lithotripsy FINDINGS: BOWEL GAS PATTERN:Right double-J ureteral stent. No significant calcifications along the course of the stent. CALCIFICATIONS:None significant. LUNG BASES:Clear. BONES:Normal. OTHER:No additional findings. CONCLUSION:Right double-J ureteral stent. No visualized calcifications along the course of the stent graft. Dictated by: Edin Hancock DO on 06/25/2022 at 02:04 PM
== END 2022-06-25 10:00 | disposition home or self-care (01) ==
LOC: SDC 06:15
PROVIDERS: ATTEND Urology
DX: N20.1 Calculus of ureter (principal); I10 Essential (primary) hypertension; E66.9 Obesity, unspecified; G47.30 Sleep apnea, unspecified; E78.2 Mixed hyperlipidemia; Z83.3 Family history of diabetes mellitus; Z79.899 Other long term (current) drug therapy; Z98.890 Other specified postprocedural states; Z79.01 Long term (current) use of anticoagulants; Z68.33 Body mass index [BMI] 33.0-33.9, adult
CPT/HCPCS: 85025; 36415; 80048; 85610; 85730; 93005; 50590; 74018; J7120; J1100 ×2; J3490 ×2; J1956 ×2; J2001 ×2; J2405 ×2; J1885; J3010 ×2; J7030; J1940

== ENCOUNTER 2022-06-30 07:22 | Day surgery (SDC) | payer BC ==
[2022-06-30] VITALS (10 sets, daily range): BP systolic 107–138; BP diastolic 66–83
[~2022-06-30] VITALS: Ht 167.6 cm; Wt 99.8 kg
[~2022-06-30 07:22] MED LIST changes: -DECADRON ONE; -DIPRIVAN IV ONE; -LACTATED RINGERS 1,000 ML ONE; -LEVAQUIN 100 ML IV ONE; -NS 1000ML 1,000 ML ONE; +OLME40TA16 PO; +PANT40TA6 PO; +ROSU10TA2 PO; -SUBLIMAZE ONE; +TAMS-14 PO; -TORADOL ONE; -XYLOCAINE 2% 5ML VIAL ONE; -ZOFRAN ONE
[2022-06-30] MEDS ORDERED: TORADOL IV STA (07:53)
[2022-06-30] MEDS ORDERED: TORADOL ONE ×2 (07:58→10:26)
--- NOTE | 2022-06-30 08:12 | NUR ---
UPDATE PT UNABLE TO RECEIVE TORADOL D/T HAVING A HARD TIME GETTIG IV ACCESS, DAY SURGERY IS GOING TO TAKE PT AND TRY TO GET AN IV STARTED.
--- NOTE | 2022-06-30 08:16 | ER.PDOC ---
General Chief Complaint: Male Stated Complaint: MALE Time seen by MD: 07:45 Source: other (Dr East) Exam Limitations: no limitations History of Present Illness Initial Comments 61-year-old male who presents with 1 week of dysuria after recent urologic procedure. He had a stent placed on the right side. Having pain with urination. No fever, no nausea or vomiting. No blood in the urine. His urologist is already here at the bedside, he is explained the plan to me, he jennie l be taken straight to the OR for stent removal and possible basket placement. Patient has normal vital signs Timing/Duration: week Severity/Quality: moderate Associated Symptoms: Dysuria Prior symptoms/Treatment: Recently Hospitalized Allergies: Coded Allergies: No Known Allergies (Unverified , 06/22/22) Home Meds Active Scripts Tamsulosin Hcl (FLOMAX) 0.4 Mg Cap.er.24h, 0.4 MG PO DAILY24, #20 CAPSULE Prov:NORMAN ADAM MD 06/25/22 Ciprofloxacin Hcl (CIPRO) 500 Mg Tablet, 1 TAB PO BID for 7 Days, #14 TAB 0 Refills Prov:NORMAN ADAM MD 06/23/22 Reported Medications Rosuvastatin 10MG (CRESTOR 10MG) 10 Mg Tablet, 10 MG PO HS 06/25/22 Pantoprazole Sodium (PANTOPRAZOLE SODIUM) 40 Mg Tablet.dr, 1 TAB PO AM 06/25/22 Olmesartan Medoxomil (Olmesartan Medoxomil) 40 Mg Tablet, 1 TAB PO QD 06/25/22 Tramadol Hcl (TRAMADOL HCL) 50 Mg Tablet, 1 TAB PO Q6HR for PAIN, #20 TAB 06/23/22 Past Medical History Medical History: high cholesterol, hypertension Surgical History: stent Social History Alcohol Use: occassionally Drug Use: none Review of Systems All Other Systems: Reviewed and Negative Physical Exam General Appearance: No Apparent Distress Neurologic/Psychiatric: Alert Results/Orders Results/Orders Orders - EMA SUN MD Ketorolac Tromethamine (Toradol) (06/30/22 07:53) Ketorolac Tromethamine (Toradol) (06/30/22 07:58) Vital Signs Date Time Temp Pulse Resp B/P (MAP) Pulse Ox O2 Delivery O2 Flow Rate FiO2 06/30/22 07:28 98.1 67 18 124/69 (87) 95 Room Air* 0 21 06/30/22 07:28 98.1 67 18 06/30/22 07:28 98.1 67 18 95 Progress Progress His urologist is already evaluated the patient and will take him to the operating room ER DEPART Departure Time of Disposition: 08:15 Disposition: 09 ADMITTED INPATIENT Impression: Primary Impression: Post-operative pain Condition: Stable Referrals: NORMAN ADAM MD (PCP) PRIMARY CARE PROVIDER Duration or Time Spent with Pa: Tonim EMA SUN MD June 30, 2022 08:16
[2022-06-30] MEDS ORDERED: NS 1000ML 1,000 ML IV SCH (09:00)
[2022-06-30] MEDS ORDERED: LEVAQUIN 100 ML IV SCH (09:00)
[2022-06-30] MEDS ORDERED: LEVAQUIN 100 ML IV ONE (09:18)
[2022-06-30] MEDS ORDERED: ZOFRAN ONE (10:26)
[2022-06-30] MEDS ORDERED: DIPRIVAN IV ONE (10:26)
[2022-06-30] MEDS ORDERED: SUBLIMAZE ONE (10:26)
[2022-06-30] MEDS ORDERED: DECADRON ONE (10:26)
[2022-06-30] MEDS ORDERED: XYLOCAINE 2% 5ML VIAL ONE (10:26)
[2022-06-30] MEDS ORDERED: LACTATED RINGERS 1,000 ML IV SCH (11:30)
[2022-06-30] MEDS ORDERED: NORCO 10MG PO PRN (12:00)
--- NOTE | 2022-06-30 13:44 | OPH ---
DATE OF SURGERY: 06/30/2022 DICTATOR NAME: Sy Rosales MD PREOPERATIVE DIAGNOSES: Calculus, right distal ureter with an indwelling stent, post-ESWL. FINAL DIAGNOSES: Calculus, right distal ureter with an indwelling stent, post-ESWL. PROCEDURES: Cystoscopy, removal of right ureteral stent, right ureteroscopy and basket stone extraction. DESCRIPTION OF PROCEDURE: The patient was brought to the cystoscopy room, was put in supine position on the cystoscopy table. After the patient was given an adequate and satisfactory LMA general anesthesia, the patient was placed in lithotomy position. Genitalia was then prepped and draped aseptically in the usual manner. First, a 23-South African cystoscope was inserted per urethra up to the bladder. With the use of the right wide-angle lens, the bladder was visualized. There is no tumor, no calculi, no ulcerations seen. There is presence of a stent in the right ureteral orifice and the stent was then removed and replaced with a Glidewire. The cystoscope was removed and a 7-South African semirigid ureteroscope was inserted per urethra up to the right ureteral orifice all the way to the right mid ureter and there was a residual stone noted in the right distal ureter. A basket stone extraction was then performed. After this was done, the instrument was removed including the Glidewire and the cystoscope was reinserted into the bladder and the bladder was emptied with fluid. Procedure was terminated. The instrument was removed. The patient was awakened, was transferred to the recovery room in stable condition. Sy Rosales MD DR: FRANCO/KELLY/MILTON TID: [id number] RECEIPT: [id number]
--- NOTE | 2022-06-30 17:42 | DIREP ---
PROCEDURE:XRAY FLUOROSCOPY COMPARISON:[facility], CR, XRAY ABDOMEN SINGLE VW, 06/25/2022, 06:47 AM. INDICATIONS:STENT REMOVAL, 145.06mGy, 255.1 SEC FLUORO TIME TECHNIQUE: Fluoroscopic images. The stent removal. FINDINGS: Initial fluoroscopic images demonstrate a right nephro ureteral stent. Subsequent images demonstrate guidewire placement and removal of the stent. Thirteen spot images. 145.06 mGy. 255.1 seconds of fluoroscopy time. CONCLUSION: Fluoroscopic intra procedural images as detailed above. Please see the separately dictated operative report for further information. Dictated by: Tristan Ford MD. on 06/30/2022 at 05:39 PM
== END 2022-06-30 12:10 | disposition home or self-care (01) ==
LOC: ER 07:22 → SDC 07:45 → UNDOADMIN 08:16 → MS 08:16 → SDC 12:10
PROVIDERS: ATTEND Urology
DX: N20.1 Calculus of ureter (principal); I10 Essential (primary) hypertension; E78.00 Pure hypercholesterolemia, unspecified; Z98.890 Other specified postprocedural states; Z95.5 Presence of coronary angioplasty implant and graft; Z72.89 Other problems related to lifestyle; Z79.899 Other long term (current) drug therapy
CPT/HCPCS: 52352; 99285; 82360; J1100; J3490; J1956; J2001; J2405; J1885 ×2; J3010; 76000; C1758; C1769